=== PATIENT | female | born 2000 | race Caucasian/White ===

== ENCOUNTER 2025-04-29 08:05 | Emergency (ER) | payer BC, SELFPAY ==
--- OUTSIDE RECORDS SUMMARY | 2016-02-09 02:41 | XMS_ITS | Continuity of Care Document ---
Author Organization [facility] Address [address] [facility] [address] [place] [address] Phone Care Team Providers Care Direct Support Staff Name Role Phone Justino BARNES, Chantelle Unavailable Unavailable Allergies, Adverse Reactions, Alerts Substance Reaction Status Criticality No Known Allergies Active No Inform ation Medications Medication Instructions Dosage Effective Dates (start - stop) Status Comments No Drug Therapy Prescribed Advance Directives Directive Yes / No Effective Date File Name No Information Encounters Encounter Description Practice Location Reason(s) For Visit Diagnoses Date Provider Providers Copied on Encounter [facility], [address], [facility], tel:[phone] [facility] No Information 6 Justino Lockhart. [address] [facility] [address], [place], [id number] . tel: [phone] [facility], [address] [place] [address], [facility], tel:[phone] [facility] Patellofemoral disorder of left knee 6 Badillo Chantelle. [address] [facility] [address], [place], [id number] . tel: [phone] Family History Family Member Type Diagnosis Age At Onset No Information Payers Payer name Insurance type Covered libertarian ID Authoriza tion(s) No Information Social History Type Description Quantity Date Captured Comments Sex Female Smoking Status No Information Chief Complaint And Reason For Visit No Information Reason For Referral Reason For Referral No Information Plan Of Treatment Date Type Action Status Referral Ordered: MARIANNE PARKER COMPL 4/MORE VIEWS LT ordered History Of Present Illness Encounter Date Complaint History Of Prese nt Illness No Information Functional Status Date Functional Assessmen t No Information Medications Administered Medication Instructions Dosage Effective Dates (start - stop) Status Comments No Drug Therapy Prescribed Instructions Date Instruction Additional Infor mation No Information Assessments Type Assessment Date No Information Patient Care Teams Name Effective Dates (start - stop) Status Members No Information
--- OUTSIDE RECORDS SUMMARY | 2016-02-09 02:41 | XMS_ITS | Continuity of Care Document ---
Author Organization [facility] Address [address] [facility] [address] [place] [address] Phone Care Team Providers Care Gore Inserter Name Role Phone Justino BARNES, Chantelle Unavailable [...] Diagnoses Date Provider Providers Copied on Encounter [facility], [address], [facility], tel:[phone] [facility] No Information 6 Justino Lockhart. [address] [facility] [address], [place], [id number] . tel: [phone] [facility], [address] [place] [address], [facility], tel:[phone] [facility] Patellofemoral disorder of left knee 6 Badillo Chantelle. [address] [facility], [facility] [address], [place], [id number] . tel: [phone] Family History Family Member Type Diagnosis Age At Onset No Information Payers Payer name Insurance type Covered green party ID Authoriza tion(s) No Information Social History [...]
--- NOTE | ~2025-04-29 | XR_ITS ---
Abdominal radiograph(s) INDICATION: Left lateral pain, recent constipation COMPARISON: None TECHNIQUE: 2 views supine abdomen FINDINGS: Lung bases clear. Heart size upper limit of normal. Scattered colonic gas and stool. No increased stool burden. Small bowel loops not well seen. No evidence of organomegaly. Small calcification overlying upper pole right kidney. No acute bony abnormality. IMPRESSION: 1. No acute abnormality. 2. Tiny right renal stone not excluded. Reviewed, dictated and finalized at location R. LIATE MARKETING COORDINATOR
[2025-04-29 08:14] VITALS: BP 138/92; PULSE 116; RESP 18; TEMP 36.6; O2SAT 100
--- NOTE | 2025-04-29 08:26 | ED.ABDPAIN ---
HPI - Abdominal Pain General Chief Complaint: Abdominal Pain Stated Complaint: lower left abdo sharp pain Time Seen by Provider: 04/29/25 08:21 Source: patient and RN notes reviewed Mode of arrival: ambulatory Limitations: no limitations History of Present Illness HPI narrative: 25-year-old female patient presents today complaining of left lateral abdominal discomfort x5 days that is present only with movement and deep breath. Upon onset, patient had been constipated for a few days. Two days ago she had started taking some medication to help her past stool, which has been successful, but has not helped with her discomfort. She denies fever, urinary symptoms. History of appendectomy. Related Data Home Medications ?Medication ?Instructions ?Recorded ?Confirmed ?Last Taken ?Type drospirenone 3 mg-ethinyl tablet 04/29/25 Unknown History estradiol 0.02 mg tablet Allergies Allergy/AdvReac Type Severity Reaction Status Date / Time No Known Allergies Allergy Verified 04/29/25 08:23 [facility] Surgical History Surgical History (Updated 04/29/25 @ 08:32 by Joelle Miguel, BAG MACHINE TENDER, WEBSPHERE MESSAGE BROKER DEVELOPER) History of appendectomy Comments At time of signature, I have reviewed and agree with nursing past medical, surgical, social and family history unless otherwise noted. Please see nursing chart for further information. There is no relevant family history pertinent to the presenting complaint Exam Narrative: GENERAL: Well-appearing, well-nourished, and in no acute distress. HEAD: Normocephalic, atraumatic. EYES: EOMI. No redness or drainage. Conjunctivae normal. ENT: Mucous membranes pink and moist. NECK: Normal AROM. CHEST: No respiratory distress. Clear to auscultation. HEART: Regular rate and rhythm. No murmur appreciated. ABDOMEN: Soft, nondistended, normal active bowel sounds. Mild tenderness to the left lateral abdomen at the waistline. No rebound or guarding. EXTREMITIES: Normal range of motion. No edema. SKIN: Warm, dry, no rash. Capillary refill normal. Normal skin turgor. NEURO: No focal deficits. Alert and oriented x3. Gait steady. PSYCH: Normal affect. No signs of depression or anxiety. Course Course Level of Care: Express Care Visit Vital Signs Vital signs: Vital Signs Temperature 97.9 F 04/29/25 08:14 Pulse Rate 116 H 04/29/25 08:14 Respiratory Rate 18 04/29/25 08:14 Blood Pressure 138/92 H 04/29/25 08:14 Pulse Oximetry 100 04/29/25 08:14 Oxygen Delivery Room Air 04/29/25 08:14 Temperature 97.9 F 04/29/25 08:14 Pulse Rate 116 H 04/29/25 08:14 Respiratory Rate 18 04/29/25 08:14 Blood Pressure 138/92 H 04/29/25 08:14 Pulse Oximetry 100 04/29/25 08:14 Oxygen Delivery Room Air 04/29/25 08:14 Reviewed MDM - Abdominal Pain MDM Narrative Medical decision making narrative: 25-year-old female patient presents today complaining of left lateral abdominal discomfort x5 days that is present only with movement and deep breath. Upon onset, patient had been constipated for a few days. Two days ago she had started taking some medication to help her past stool, which has been successful, but has not helped with her discomfort. She denies fever, urinary symptoms. History of appendectomy. Upon exam, patient has some mild tenderness to the left lateral abdomen at the waistline without rebound or guarding. Urinalysis is negative. Urine negative. KUB is negative for acute findings. Discussed with patient that due to the location of the pain, that the pain is intermittent and present only with movement and deep breath, she could do some watchful waiting and follow up with her PCP or proceed to the ER for further evaluation this morning. Declines ER transfer at this time as she has a class, but will go if symptoms worsen. Differential Diagnosis Differential diagnosis: Likely abdominal pain, constipation, diverticulitis and other (muscle strain) Lab Data Attestation: I reviewed the patient's lab results. Labs: Lab Results 04/29/25 Range/Units 08:28 POC Urine Color Yellow POC Urine Clarity Cloudy POC Urine pH 7.0 POC Ur Specif [place] 1.020 POC Urine Protein Negative (Negative) POC Ur Glucose (UA) Negative (Negative) POC Urine Ketones Negative (Negative) POC Urine Blood Negative (Negative) POC Urine Nitrite Negative (Negative) POC Urine Bilirubin Negative (Negative) POC Urine Urobilinogen 0.2 POC U Leukocyte Esteras Negative (Negative) POC Urine HCG, Qual Negative (Negative) Imaging Data Radiologist's impression: ITS Impressions Abdomen X-Ray 04/29/25 09:12 IMPRESSION: 1. No acute abnormality. 2. Tiny right renal stone not excluded. Critical Care Time Critical Care Time Critical Care Time: No Discharge Plan Discharge Clinical Impression: Left lateral abdominal pain Patient Disposition: Home Condition: Stable Instructions: Abdominal Pain (ED) Additional Instructions: Your urinalysis is negative for infection today. Your urine test is negative. Your abdominal x-ray is negative. You have declined to go to the ER today. Please proceed to the ER at a later time if symptoms persist or worsen. Patient Language: Maltese Prescriptions: No Action drospirenone-ethinyl estradiol 3-0.02 mg tablet Follow-up/Referrals: PHYSICIAN NOT ON STAFF,NONSTAFF [Primary Care Provider] Time of Disposition: 09:28
[2025-04-29 08:38] LABS: BEDSIDEPREGUCG Negative (Negative); EDUAAPPEAR Cloudy; EDUABILI Negative (Negative); EDUABLOOD Negative (Negative); EDUACOLOR1 Yellow; EDUAGLUCOSE Negative (Negative); EDUAKETONE Negative (Negative); EDUALEUKO Negative (Negative); EDUANITRATE Negative (Negative); EDUAPH 7.0; EDUAPROTEIN Negative (Negative); EDUASPGRAVITY 1.020; EDUAUROBILI 0.2
--- OUTSIDE RECORDS SUMMARY | 2025-04-29 16:59 | XMS_ITS | Encounter Summary ---
Author Organization [facility] Address [address] [place] [address] Care Team Providers Care Change Management Name Role Phone Miki Ward MD Primary Care Provider [phone]- [phone] Encounter Details Date Type Department Care Team (Late st Contact Info) Description 05/11/2004 Outpatient Historical [facility] Pediatrics [place] 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 Gender Identity Not on file Sexual Orientation Not on file documented as of this encounter Plan of Treatment Not on file documented as of this encounter Visit Diagnoses Not on filedocumented in this encounter Additional Health Concerns Infection Onset Date Last Indicated Resolved Time R/O COVID-19 01/28/2020 01/28/2020 01/30/2020 5:00 AM CDT COVID-19 01/28/2020 01/28/2020 02/27/2020 1:16 AM CDT documented as of this encounter Care Teams Change Management Relationship Specialty Start Date End Date Miki Ward MD [address] [place] [address] PCP - General Pediatrics 01/15/22 07/04/22 documented as of this encounter
--- OUTSIDE RECORDS SUMMARY | 2025-04-29 16:59 | XMS_ITS | Clinical Summary ---
Author Organization [facility] [address] Address [address] [place] [address] Care Team Providers Care Performance Reporter Name Role Phone Unavailable Primary Care Provider Unavailabl e Allergies No known active allergies Medications multivitamin (DAILY-CURT) tablet Take 1 Tablet by mouth daily. Active albuterol sulfate 90 mcg/Actuation inhalerIndicati ons:Cough Take 2 Puffs by inhalation every 4 hours as needed for Shortness of Breath or Wheezing. 8.5 Gram 2 2 Active ondansetron (ZOFRAN ODT) 4 mg Tablet, Rapid Dissolve Place 1 Tablet (4 mg) under tongue every 6 hours as needed for Nausea/Emesis. Dissolve tablet on top of tongue, then swallow with saliva. 10 Tablet 3 Active Active Problems Problem Noted Date Diagnosed Date Irritable bowel syndrome wit h both constipation and diarrhea 01/15/2022 S/P appendectomy 01/15/2022 Exercise-induced asthma 01/19/2019 Resolved Problems Problem Noted Date Diagnosed Date Resolved Date Well child visit 05/31/2010 06/01/2010 Molluscum contagiosum 01/30/20102009 Cellulitis 01/16/2010 06/01/2010 Overview (01/18/2010): PO septra, topical mupirocin, Hibiclens baths. Sleep walking disorder 03/13/200906/01 Well child visit 03/11/2009 03/13/2009 Nonvenomous insect bite of leg with infection 12/03/1903/11/2009 Molluscum contagiosum 12/02/20082008 Immunizations Immunization Administration Dates Next Due (ADACEL/BOOSTRIX)(10 YR UP) TDAP VACCINE, 0.5ML, IM 01/14/2018,04/28/2012 (GARDASIL)(9-45 YRS) HUMAN PAPILLOMAVIRUS VACCINE, TYPES 6, 11, 16, 18, QUADRIVALENT (4VHPV), 3 DOSE, IM 01/28/2015,09/27/2014,07/28/2014 (HAVRIX/VAQTA)(12 MO-18 YRS) HEPATITIS A VACCINE 0.5 ML PED/ADOL 2 DOSE, IM 04/22/2008 (INFANRIX)(6 WKS-6 YRS) DIPT HERIA, TETANUS TOXOIDS, AND ACCELLULAR PERTUSSIS VACCINE (DTAP), 0.5 ML IM 03/11/2006,06/09/2002,2001,07/11,2001 (IPOL)(6 WKS AND UP) POLIOVI BELL VACCINE, INACTIVATED (IPV), 3 DOSE, SUBCUT OR IM 03/11/2006,2001,2001,05/12 (M-M-R II/PRIORIX)(12 MO UP) MEASLES, MUMPS AND RUBELLA VIRUS VACCINE, 0.5 ML IM/SUBCUT 03/11/2006,06/09/2002 (TRUMENBA)(10-25 YR) MENINGO COCCAL RECOMBIANT LIPOPROTEIN VACCINE, SEROGROUP B MENB-FHBP, 2-3 DOSE, IM 11/07/2020,12/30/2019 (VARIVAX)(12 MOS UP)VARICELL A VIRUS VACCINE (PF) 0.5 ML, SUB CUT 02/14/2007,03/13/2002 HIB, Unspecified Formulation 03/13/2002,07/11/19 02,2001 Hepatitis A Vaccine 02/14/2007 Hepatitis B Vaccine 03/13/2002,2001,2000 INFLUENZA VACCINE QUADRIVALE NT 3 YR UP PF IM 05/02/2015,05/04/2013 INFLUENZA VACCINE QUADRIVALE NT 6 MOS UP PF IM 03/18/2017 Influenza Seasonal Unspecifi ed Formulation IM 04/10/2005,04/10/2004,07/23/2002,06/09 Influenza Vaccine Split 3+ Yrs PF IM 10/2011,04/24/2011,05/31/2010,03/11,04/22/2008 Meningococcal A Conjugate Vaccine IM 03/18/2017, 04/28/2012 Pneumococcal conjugate, unsp ecified formulation 04/10/2005,2001,2001,05/12 Social History Tobacco Use Types Packs/Day Years Used Date Smoking Tobacco: Never Smokeless Tobacco: Never Tobacco Cessation:Counseling Given: Not Answered Alcohol Use Standard Drinks/Week Comments No 0 (1 standard drink = 0.6 oz pur e alcohol) Feeling Safe Answer Date Recorded Are you in a relationship wi th someone who hurts you emotionally and/or physically? No 06/08/2023 Comments No Sex and Gender Information Value Date Recorded Sex Assigned at Not on file Legal Sex Female 3:25 AM SATIN FINISHER Gender Identity Not on file Sexual Orientation Not on file Last Filed Vital Signs Vital Sign Reading Time Taken Comments Blood Pressure 117/69 06/08/2023 7:01 AM SATIN FINISHER Pulse 94 06/08/2023 7:01 AM SATIN FINISHER Temperature 36.4 C (97.6 F) 06/08/2023 2:11 AM SATIN FINISHER Respiratory Rate 14 06/08/2023 7:01 AM SATIN FINISHER Oxygen Saturation 100% 06/08/2023 7:01 AM SATIN FINISHER Inhaled Oxygen Concentration - - Weight 59 kg (130 lb) 06/08/2023 2:11 AM SATIN FINISHER Height 167.6 cm (5' 6) 06/08/2023 2:11 AM SATIN FINISHER Body Mass Index 20.98 06/08/2023 2:11 AM SATIN FINISHER Plan of Treatment Health Maintenance Due Date Last Done Comments HPV/Cotest (21-) 2022 INFLUENZA VACCINE (#1) 2025 7, 05/02/2015, 05/04/2013, Additional history exists CERVICAL CANCER SCREENING 05/15/2026 PAP SMEAR 05/15/2026 05/15/2023 DTAP/TDAP/TD VACCINES (8 - T d or Tdap) 01/15/2028 01/14/2018, 04/28/2012, 03/11/2006, Additional history exists HEPATITIS B VACCINES Completed 03/13/2002, 03/13/2002, 2001, Additional history exists HPV VACCINES Completed 01/28/2015, 11/2014, 07/28/2014 Insurance [facility] [employer]
--- OUTSIDE RECORDS SUMMARY | 2025-04-29 16:59 | XMS_ITS | Encounter Summary ---
Author Organization [facility] Address [address] [place] [address] Care Team Providers Care Flight Attendant Inflight Services Name Role Phone Miki Ward MD Primary Care Provider +1- [phone] Encounter Details Date Type Department Care Team (Late st Contact Info) Description 03/11/2006 Outpatient Historical [facility] Pediatrics [place] [address] [place] [address] Jeremias Martel MD NO ADDRESS ON FILE Social History Tobacco Use Types Packs/Day Years Used Date Smoking Tobacco: Never Assessed Comments Unknown Sex and Gender Information Value Date Recorded Sex Assigned at Not on file Legal Sex Female 3:25 AM NURSING ASSOC Gender Identity Not on file Sexual Orientation [...] documented as of this encounter Care Teams Flight Attendant Inflight Services Relationship Specialty Start Date End Date Miki Ward MD [address] [place], [place] [id number] PCP - General Pediatrics 01/15/22 07/04/22 documented as of this encounter
--- OUTSIDE RECORDS SUMMARY | 2025-04-29 16:59 | XMS_ITS | Encounter Summary ---
Author Organization [facility] Address [address] [place] [address] Care Team Providers Care Cardiac Cath Tech Name Role Phone Miki Ward MD Primary Care Provider +1- [phone] Encounter Details Date Type Department Care Team (Late st Contact Info) Description 04/10/2005 Outpatient Historical [facility] Pediatrics [place] 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
--- OUTSIDE RECORDS SUMMARY | 2025-04-29 16:59 | XMS_ITS | Encounter Summary ---
Author Organization [facility] Address [address] [place] [address] Care Team Providers Care Rn Child Name Role Phone Miki Ward MD Primary Care Provider +1- [phone] Encounter Details Date Type Department Care Team (Late st Contact Info) Description 09/17/2003 Outpatient Historical [facility] Pediatrics [address] [place] [address] Michelle Knox Social History Tobacco Use Types Packs/Day Years Used Date Smoking Tobacco: Never Assessed Comments Unknown Sex and Gender Information Value Date Recorded Sex Assigned at Not on file Legal Sex Female 3:25 AM WOOLEN TESTER Gender Identity Not on file Sexual Orientation [...] documented as of this encounter Care Teams Rn Child Relationship Specialty Start Date End Date Miki Ward MD [address] [place], [place] [id number] PCP - General Pediatrics 01/15/22 07/04/22 documented as of this encounter
--- OUTSIDE RECORDS SUMMARY | 2025-04-29 16:59 | XMS_ITS | Encounter Summary ---
Author Organization [facility] Address [address] [place] [address] Care Team Providers Care Bottom Polisher Name Role Phone Miki Ward MD Primary Care Provider +1- [phone] Encounter Details Date Type Department Care Team (Late st Contact Info) Description 04/10/[address] [facility] Pediatrics [address] [place] [address] Michelle Knox Social History Tobacco Use Types Packs/Day Years Used Date Smoking Tobacco: Never Assessed Comments Unknown Sex and Gender Information Value Date Recorded Sex Assigned at Not on file Legal Sex Female 3:25 AM TAG MAKER Gender Identity Not on file Sexual Orientation [...] documented as of this encounter Care Teams Bottom Polisher Relationship Specialty Start Date End Date Miki Ward MD [address] [place], [place] [id number] PCP - General Pediatrics 01/15/22 07/04/22 documented as of this encounter
--- OUTSIDE RECORDS SUMMARY | 2025-04-29 16:59 | XMS_ITS | Encounter Summary ---
Author Organization [facility] Address [address] [place] [address] Care Team Providers Care Tax Record Clerk Name Role Phone Miki Ward MD Primary Care Provider +1- [phone] Encounter Details Date Type Department Care Team (Late st Contact Info) Description 04/10/2004 Outpatient Historical [facility] Pediatrics 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
--- OUTSIDE RECORDS SUMMARY | 2025-04-29 16:59 | XMS_ITS | Encounter Summary ---
Author Organization [facility] Address [address] [place] [address] Care Team Providers Care Campus Coordinator Name Role Phone Miki Ward MD Primary Care Provider +1- [phone] Encounter Details Date Type Department Care Team (Late st Contact Info) Description 04/13/2005 Outpatient Historical [facility] Pediatrics [place] 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
--- OUTSIDE RECORDS SUMMARY | 2025-04-29 16:59 | XMS_ITS | Encounter Summary ---
Author Organization [facility] Address [address] [place] [address] Care Team Providers Care Salesperson Sheet Music Name Role Phone Miki Ward MD Primary Care Provider +1- [phone] Encounter Details Date Type Department Care Team (Late st Contact Info) Description 04/10/2004 Outpatient Historical [facility] Pediatrics 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
--- OUTSIDE RECORDS SUMMARY | 2025-04-29 16:59 | XMS_ITS | Encounter Summary ---
Author Organization [facility] Address [address] [place] [address] Care Team Providers Care Yard Spotter Name Role Phone Miki Ward MD Primary Care Provider +1- [phone] Encounter Details Date Type Department Care Team (Late st Contact Info) Description 06/29/2004 Outpatient Historical [facility] Pediatrics 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
--- OUTSIDE RECORDS SUMMARY | 2025-04-29 16:59 | XMS_ITS | Clinical Summary ---
Author Organization [facility] Address [address] [place]W Ronquillo [address] Care Team Providers Care Dedicated Truck Driver Name Role Phone Unavailable Primary Care Provider Unavailabl e Source Comments [facility],non-owned Affiliates and Associated Physician Practices is amultiple site organization consisting of ambulatory clinics and hospital sitesin [place], [place], [place] and [place]. This disclosure is being madepursuant to the Care Everywhere program and may not contain all information available regarding this patient. Last updated 18.[facility] [place] Allergies No known active allergies Medications * Be aware that medications may not be up to date on this document. Alwaysverify current medications with the patient. No known medications Active Problems Problem Noted Date Diagnosed Date Flu-like symptoms 07/25/2017 Throat soreness 07/25/2017 Social History Tobacco Use Types Packs/Day Years Used Date Smoking Tobacco: Never Smokeless Tobacco: Never Comments No Sex and Gender Information Value Date Recorded Sex Assigned at Not on file Legal Sex Female 9:10 AM PLANT TECH Gender Identity Not on file Sexual Orientation Not on file Last Filed Vital Signs Vital Sign Reading Time Taken Comments Blood Pressure 128/79 07/15/2019 8:41 AM PLANT TECH Pulse 100 07/15/2019 8:41 AM PLANT TECH Temperature 37.1 C (98.7 F) 07/15/2019 8:41 AM PLANT TECH Respiratory Rate 14 07/15/2019 8:41 AM PLANT TECH Oxygen Saturation 100% 07/15/2019 8:41 AM PLANT TECH Inhaled Oxygen Concentration - - Weight 59 kg (130 lb) 07/15/2019 8:41 AM PLANT TECH Height 167.6 cm (5' 6) 07/15/2019 8:41 AM PLANT TECH Body Mass Index 20.98 07/15/2019 8:41 AM PLANT TECH Plan of Treatment Health Maintenance Due Date Last Done Comments HIV SCREENING 2016 HPV VACCINE (1 - 3-dose series) 2016 CHLAMYDIA/GONORRHEA SCREENING 2017 HEPATITIS C SCREENING 03/06/2019 DTAP/TDAP/TD VACCINES (1 - Tdap) 2020 HEPATITIS B VACCINE (1 of 3 - 19+ 3-dose series) 2020 DEPRESSION SCREENING 06/24/2024 COVID-19 VACCINE (1 - season) 2025 INFLUENZA VACCINE (#1) 2025 7, 05/02/2015, 05/04/2013, Additional history exists ZOSTER VACCINE (1 of 2) 2051 HIB VACCINE Aged Out No longer eligi ble based on patient's age to complete this topic MENINGOCOCCAL (Group B) VACCINE SHARED DECISION-MAKING Aged Out No longer eligible based on patient's age to complete this topic MENINGOCOCCAL GROUPS A/C/Y/W VACCINE Aged Out No longer eligible based on patient's age to complete this topic PNEUMOCOCCAL VACCINE Aged Out No long er eligible based on patient's age to complete this topic Insurance NATALI [facility]
--- OUTSIDE RECORDS SUMMARY | 2025-04-29 16:59 | XMS_ITS | Encounter Summary ---
Author Organization [facility] Address [address] [place] [address] Care Team Providers Care Form Presser Name Role Phone Miki Ward MD Primary Care Provider +1- [phone] Encounter Details Date Type Department Care Team (Late st Contact Info) Description 01/02/2005 Outpatient Historical [facility] [place] [address] [place] [address] Jeremias Martel MD NO ADDRESS ON FILE Social History Tobacco Use Types Packs/Day Years Used Date Smoking Tobacco: Never Assessed Comments Unknown Sex and Gender Information Value Date Recorded Sex Assigned at Not on file Legal Sex Female 3:25 AM ORAL PATHOLOGIST Gender Identity Not on file Sexual Orientation [...] documented as of this encounter Care Teams Form Presser Relationship Specialty Start Date End Date Miki Ward MD [address] [place], [place] [id number] PCP - General Pediatrics 01/15/22 07/04/22 documented as of this encounter
--- OUTSIDE RECORDS SUMMARY | 2025-04-29 16:59 | XMS_ITS | Encounter Summary ---
Author Organization [facility] Address [address] [place] [address] Care Team Providers Care Trekking Guide Name Role Phone Miki Ward MD Primary Care Provider +1- [phone] Encounter Details Date Type Department Care Team (Late st Contact Info) Description 02/14/2007 Outpatient Historical [facility] [place] [address] [place] [address] Jeremias Martel MD NO ADDRESS ON FILE Social History Tobacco Use Types Packs/Day Years Used Date Smoking Tobacco: Never Assessed Comments Unknown Sex and Gender Information Value Date Recorded Sex Assigned at Not on file Legal Sex Female 3:25 AM FLOUR INSPECTOR Gender Identity Not on file Sexual Orientation [...] documented as of this encounter Care Teams Trekking Guide Relationship Specialty Start Date End Date Miki Ward MD [address] [place], [place] [id number] PCP - General Pediatrics 01/15/22 07/04/22 documented as of this encounter
--- OUTSIDE RECORDS SUMMARY | 2025-04-29 16:59 | XMS_ITS | Encounter Summary ---
Author Organization [facility] Address [address] [place] [address] Care Team Providers Care Construction Producer Name Role Phone Miki Ward MD Primary Care Provider +1- [phone] Encounter Details Date Type Department Care Team (Late st Contact Info) Description 04/10/2004 Outpatient Historical [facility] Pediatrics [address] [place] [address] Michelle Knox Social History Tobacco Use Types Packs/Day Years Used Date Smoking Tobacco: Never Assessed Comments Unknown Sex and Gender Information Value Date Recorded Sex Assigned at Not on file Legal Sex Female 3:25 AM IT SERVICE TECHNICIAN Gender Identity Not on file Sexual Orientation [...] documented as of this encounter Care Teams Construction Producer Relationship Specialty Start Date End Date Miki Ward MD [address] [place], [place] [id number] PCP - General Pediatrics 01/15/22 07/04/22 documented as of this encounter
--- OUTSIDE RECORDS SUMMARY | 2025-04-29 16:59 | XMS_ITS | Encounter Summary ---
Author Organization [facility] Address [address] [place] [address] Care Team Providers Care Cardiology Specialist Name Role Phone Miki Ward MD Primary Care Provider +1- [phone] Encounter Details Date Type Department Care Team (Late st Contact Info) Description 01/29/2005 Outpatient Historical [facility] Pediatric[facility] [place] [address] [place] [address] Jeremias Martel MD NO ADDRESS ON FILE Social History Tobacco Use Types Packs/Day Years Used Date Smoking Tobacco: Never Assessed Comments Unknown Sex and Gender Information Value Date Recorded Sex Assigned at Not on file Legal Sex Female 3:25 AM GUEST RELATIONS OFFICER Gender Identity Not on file Sexual Orientation [...] documented as of this encounter Care Teams Cardiology Specialist Relationship Specialty Start Date End Date Miki Ward MD [address] [place], [place] [id number] PCP - General Pediatrics 01/15/22 07/04/22 documented as of this encounter
--- OUTSIDE RECORDS SUMMARY | 2025-04-29 16:59 | XMS_ITS | Encounter Summary ---
Author Organization [facility] Address [address] [place] [address] Care Team Providers Care Superintendent Refuse Disposal Name Role Phone Miki Ward MD Primary Care Provider +1- [phone] Encounter Details Date Type Department Care Team (Late st Contact Info) Description 01/24/2005 Outpatient Historical [facility] Pediatrics [address] [place] [address] Miki Ward MD [address] [place] [address] Social History Tobacco Use Types Packs/Day Years Used Date Smoking Tobacco: Never Assessed Comments Unknown Sex and Gender Information Value Date Recorded Sex Assigned at Not on file Legal Sex Female 3:25 AM SMART ENERGY SPECIALIST Gender Identity Not on file Sexual Orientation [...] documented as of this encounter Care Teams Superintendent Refuse Disposal Relationship Specialty Start Date End Date Miki Ward MD [address] [place] [address] PCP - General Pediatrics 01/15/22 07/04/22 documented as of this encounter
--- OUTSIDE RECORDS SUMMARY | 2025-04-29 16:59 | XMS_ITS | Encounter Summary ---
Author Organization [facility] Address [address] [place] [address] Care Team Providers Care Revenue Coordinator Name Role Phone Miki Ward MD Primary Care Provider +1- [phone] Encounter Details Date Type Department Care Team (Late st Contact Info) Description 07/24/2004 Outpatient Historical [facility] Pediatrics [address] [place] [address] Miki Ward MD [address] [place] [address] Social History Tobacco Use Types Packs/Day Years Used Date Smoking Tobacco: Never Assessed Comments Unknown Sex and Gender Information Value Date Recorded Sex Assigned at Not on file Legal Sex Female 3:25 AM SALES TRAINING COORDINATOR Gender Identity Not on file Sexual Orientation [...] documented as of this encounter Care Teams Revenue Coordinator Relationship Specialty Start Date End Date Miki Ward MD [address] [place] [address] PCP - General Pediatrics 01/15/22 07/04/22 documented as of this encounter
--- OUTSIDE RECORDS SUMMARY | 2025-04-29 16:59 | XMS_ITS | Encounter Summary ---
Author Organization [facility] Address [address] [place] [address] Care Team Providers Care Cardiovascular Technician Name Role Phone Miki Ward MD Primary Care Provider +1- [phone] Encounter Details Date Type Department Care Team (Late st Contact Info) Description 06/02/2007 Outpatient Historical [facility] Pediatrics [place] [address] [place] [address] Jeremias Martel MD NO ADDRESS ON FILE Social History Tobacco Use Types Packs/Day Years Used Date Smoking Tobacco: Never Assessed Comments Unknown Sex and Gender Information Value Date Recorded Sex Assigned at Not on file Legal Sex Female 3:25 AM TRIMMING OPERATOR Gender Identity Not on file Sexual [...] documented as of this encounter Care Teams Cardiovascular Technician Relationship Specialty Start Date End Date Miki Ward MD [address] [place], [place] [id number] PCP - General Pediatrics 01/15/22 07/04/22 documented as of this encounter
--- OUTSIDE RECORDS SUMMARY | 2025-04-29 16:59 | XMS_ITS | Encounter Summary ---
Author Organization [facility] Address [address] [place] [address] Care Team Providers Care Water Server Name Role Phone Miki Ward MD Primary Care Provider +1- [phone] Encounter Details Date Type Department Care Team (Late st Contact Info) Description 03/11/2006 Outpatient Historical [facility] Pediatrics [place] [address] [place] [address] Jeremias Martel MD NO ADDRESS ON FILE Social History Tobacco Use Types Packs/Day Years Used Date Smoking Tobacco: Never Assessed Comments Unknown Sex and Gender Information Value Date Recorded Sex Assigned at Not on file Legal Sex Female 3:25 AM FLUME WORKER Gender Identity Not on file Sexual [...] documented as of this encounter Care Teams Water Server Relationship Specialty Start Date End Date Miki Ward MD [address] [place], [place] [id number] PCP - General Pediatrics 01/15/22 07/04/22 documented as of this encounter
--- OUTSIDE RECORDS SUMMARY | 2025-04-29 17:00 | XMS_ITS | Encounter Summary ---
Author Organization [facility] Address [address] [place] [address] Care Team Providers Care Bar Examiner Name Role Phone Miki Ward MD Primary Care Provider +1- [phone] Encounter Details Date Type Department Care Team (Late st Contact Info) Description 03/23/2002 Outpatient Historical [facility] [address] [address] Singh Angel MD NO ADDRESS ON FILE Social History Tobacco Use Types Packs/Day Years Used Date Smoking Tobacco: Never Assessed Comments Unknown Sex and Gender Information Value Date Recorded Sex Assigned at Not on file Legal Sex Female 3:25 AM NETWORK MGR Gender Identity Not on file Sexual Orientation [...] documented as of this encounter Care Teams Bar Examiner Relationship Specialty Start Date End Date Miki Ward MD [address] [place] [address] PCP - General Pediatrics 01/15/22 07/04/22 documented as of this encounter
--- OUTSIDE RECORDS SUMMARY | 2025-04-29 17:00 | XMS_ITS | Encounter Summary ---
Author Organization [facility] Address [address] [place] [address] Care Team Providers Care Tractor Operator Laser Leveling Name Role Phone Miki Ward MD Primary Care Provider +1- [phone] Encounter Details Date Type Department Care Team (Late st Contact Info) Description 09/16/[address] [facility] Pediatrics [address] [place] [address] Michelle Knox Social History Tobacco Use Types Packs/Day Years Used Date Smoking Tobacco: Never Assessed Comments Unknown Sex and Gender Information Value Date Recorded Sex Assigned at Not on file Legal Sex Female 3:25 AM ONLINE MARKETING ANALYST Gender Identity Not on file Sexual Orientation [...] documented as of this encounter Care Teams Tractor Operator Laser Leveling Relationship Specialty Start Date End Date Miki Ward MD [address] [place], [place] [id number] PCP - General Pediatrics 01/15/22 07/04/22 documented as of this encounter
--- OUTSIDE RECORDS SUMMARY | 2025-04-29 17:00 | XMS_ITS | Encounter Summary ---
Author Organization [facility] Address [address] [place] [address] Care Team Providers Care Network Operations Lead Name Role Phone Miki Ward MD Primary Care Provider +1- [phone] Encounter Details Date Type Department Care Team (Late st Contact Info) Description 2001 Outpatient Historical [facility] Pediatrics [address] [place] [address] Miki Ward MD [address] [place] [address] Social History Tobacco Use Types Packs/Day Years Used Date Smoking Tobacco: Never Assessed Comments Unknown Sex and Gender Information Value Date Recorded Sex Assigned at Not on file Legal Sex Female 3:25 AM VALIDATION SOFTWARE FACILITATOR Gender Identity Not on file Sexual Orientation [...] documented as of this encounter Care Teams Network Operations Lead Relationship Specialty Start Date End Date Miki Ward MD [address] [place] [address] PCP - General Pediatrics 01/15/22 07/04/22 documented as of this encounter
--- OUTSIDE RECORDS SUMMARY | 2025-04-29 17:00 | XMS_ITS | Encounter Summary ---
Author Organization [facility] Address [address] [place] [address] Care Team Providers Care Bench Lay Out Technician Name Role Phone Miki Ward MD Primary Care Provider +1- [phone] Encounter Details Date Type Department Care Team (Late st Contact Info) Description 2001 Outpatient Historical [facility] Pediatrics [address] [place] [address] Michelle Knox Social History Tobacco Use Types Packs/Day Years Used Date Smoking Tobacco: Never Assessed Comments Unknown Sex and Gender Information Value Date Recorded Sex Assigned at Not on file Legal Sex Female 3:25 AM HEALTH PROFESSOR Gender Identity Not on file Sexual Orientation [...] documented as of this encounter Care Teams Bench Lay Out Technician Relationship Specialty Start Date End Date Miki Ward MD [address] [place], [place] [id number] PCP - General Pediatrics 01/15/22 07/04/22 documented as of this encounter
--- OUTSIDE RECORDS SUMMARY | 2025-04-29 17:00 | XMS_ITS | Encounter Summary ---
Author Organization [facility] Address [address] [place] [address] Care Team Providers Care Transportation Maintenance Supervisor Name Role Phone Miki Ward MD Primary Care Provider +1- [phone] Encounter Details Date Type Department Care Team (Late st Contact Info) Description 2001 Outpatient Historical [facility] Pediatrics 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
--- OUTSIDE RECORDS SUMMARY | 2025-04-29 17:00 | XMS_ITS | Encounter Summary ---
Author Organization [facility] Address [address] [place] [address] Care Team Providers Care Static Balancer Name Role Phone Miki Ward MD Primary Care Provider +1- [phone] Encounter Details Date Type Department Care Team (Late st Contact Info) Description 03/13/2002 Outpatient Historical [facility] Pediatrics [address] [place] [address] Michelle Knox Social History Tobacco Use Types Packs/Day Years Used Date Smoking Tobacco: Never Assessed Comments Unknown Sex and Gender Information Value Date Recorded Sex Assigned at Not on file Legal Sex Female 3:25 AM PUNCHER AND FASTENER Gender Identity Not on file Sexual Orientation [...] documented as of this encounter Care Teams Static Balancer Relationship Specialty Start Date End Date Miki Ward MD [address] [place], [place] [id number] PCP - General Pediatrics 01/15/22 07/04/22 documented as of this encounter
--- OUTSIDE RECORDS SUMMARY | 2025-04-29 17:00 | XMS_ITS | Encounter Summary ---
Author Organization [facility] Address [address] [place] [address] Care Team Providers Care Ip Counsel Name Role Phone Miki Ward MD Primary Care Provider +1- [phone] Encounter Details Date Type Department Care Team (Late st Contact Info) Description 06/05/2003 Outpatient Historical [facility] Pediatrics [place] [address] [place] [address] Miki Ward MD [address] [place] [address] Social History Tobacco Use Types Packs/Day Years Used Date Smoking Tobacco: Never Assessed Comments Unknown Sex and Gender Information Value Date Recorded Sex Assigned at Not on file Legal Sex Female 3:25 AM SUPERVISOR GAME FARM Gender Identity Not on file Sexual Orientation [...] documented as of this encounter Care Teams Ip Counsel Relationship Specialty Start Date End Date Miki Ward MD [address] [place] [address] PCP - General Pediatrics 01/15/22 07/04/22 documented as of this encounter
--- OUTSIDE RECORDS SUMMARY | 2025-04-29 17:00 | XMS_ITS | Encounter Summary ---
Author Organization [facility] Address [address] [place] [address] Care Team Providers Care Tire Cord Weaver Name Role Phone Miki Ward MD Primary Care Provider +1- [phone] Encounter Details Date Type Department Care Team (Late st Contact Info) Description 07/14/2002 Outpatient Historical [facility] Pediatrics [address] [place] [address] Michelle Knox Social History Tobacco Use Types Packs/Day Years Used Date Smoking Tobacco: Never Assessed Comments Unknown Sex and Gender Information Value Date Recorded Sex Assigned at Not on file Legal Sex Female 3:25 AM AIRCRAFT SYSTEMS REPAIRER Gender Identity Not on file Sexual Orientation [...] documented as of this encounter Care Teams Tire Cord Weaver Relationship Specialty Start Date End Date Miki Ward MD [address] [place], [place] [id number] PCP - General Pediatrics 01/15/22 07/04/22 documented as of this encounter
--- OUTSIDE RECORDS SUMMARY | 2025-04-29 17:00 | XMS_ITS | Encounter Summary ---
Author Organization [facility] Address [address] [place] [address] Care Team Providers Care Clinical Systems Analyst Name Role Phone Miki Ward MD Primary Care Provider +1- [phone] Encounter Details Date Type Department Care Team (Late st Contact Info) Description 03/19/2003 Outpatient Historical [facility] Pediatrics [address] [place] [address] Michelle Knox Social History Tobacco Use Types Packs/Day Years Used Date Smoking Tobacco: Never Assessed Comments Unknown Sex and Gender Information Value Date Recorded Sex Assigned at Not on file Legal Sex Female 3:25 AM TECHNOLOGY PROFESSIONAL Gender Identity Not on file Sexual Orientation [...] documented as of this encounter Care Teams Clinical Systems Analyst Relationship Specialty Start Date End Date Miki Ward MD [address] [place], [place] [id number] PCP - General Pediatrics 01/15/22 07/04/22 documented as of this encounter
--- OUTSIDE RECORDS SUMMARY | 2025-04-29 17:00 | XMS_ITS | Encounter Summary ---
Author Organization [facility] Address [address] [place] [address] Care Team Providers Care Multimedia Developer Name Role Phone Miki Ward MD Primary Care Provider +1- [phone] Encounter Details Date Type Department Care Team (Late st Contact Info) Description 2001 Outpatient Historical [facility] Pediatrics [address] [place] [address] Michelle Knox Social History Tobacco Use Types Packs/Day Years Used Date Smoking Tobacco: Never Assessed Comments Unknown Sex and Gender Information Value Date Recorded Sex Assigned at Not on file Legal Sex Female 3:25 AM FIBERGLASS BOAT ASSEMBLY SUPERVISOR Gender Identity Not on file Sexual Orientation [...] documented as of this encounter Care Teams Multimedia Developer Relationship Specialty Start Date End Date Miki Ward MD [address] [place], [place] [id number] PCP - General Pediatrics 01/15/22 07/04/22 documented as of this encounter
--- OUTSIDE RECORDS SUMMARY | 2025-04-29 17:00 | XMS_ITS | Encounter Summary ---
Author Organization [facility] Address [address] [place] [address] Care Team Providers Care Power Generation Equipment Repairer Name Role Phone Miik Ward MD Primary Care Provider +1- [phone] Encounter Details Date Type Department Care Team (Late st Contact Info) Description 03/22/2003 Outpatient Historical [facility] Pediatrics [address] [place] [address] Miki Ward MD [address] [place] [address] Social History Tobacco Use Types Packs/Day Years Used Date Smoking Tobacco: Never Assessed Comments Unknown Sex and Gender Information Value Date Recorded Sex Assigned at Not on file Legal Sex Female 3:25 AM ORTHOPAEDIC SURGEON Gender Identity Not on file Sexual Orientation [...] documented as of this encounter Care Teams Power Generation Equipment Repairer Relationship Specialty Start Date End Date Miki Ward MD [address] [place] [address] PCP - General Pediatrics 01/15/22 07/04/22 documented as of this encounter
--- OUTSIDE RECORDS SUMMARY | 2025-04-29 17:00 | XMS_ITS | Encounter Summary ---
Author Organization [facility] Address [address] [place] [address] Care Team Providers Care Fitness Management Director Name Role Phone Miki Ward MD Primary Care Provider +1- [phone] Encounter Details Date Type Department Care Team (Late st Contact Info) Description 2001 Outpatient Historical [facility] Pediatrics [address] [place] [id number] Michelle Knox Social History Tobacco Use Types Packs/Day Years Used Date Smoking Tobacco: Never Assessed Comments Unknown Sex and Gender Information Value Date Recorded Sex Assigned at Not on file Legal Sex Female 3:25 AM CERTIFIED NURSES' AIDE Gender Identity Not on file Sexual Orientation [...] documented as of this encounter Care Teams Fitness Management Director Relationship Specialty Start Date End Date Miki Ward MD [address] [place], [place] [id number] PCP - General Pediatrics 01/15/22 07/04/22 documented as of this encounter
--- OUTSIDE RECORDS SUMMARY | 2025-04-29 17:00 | XMS_ITS | Encounter Summary ---
Author Organization [facility] Address [address] [place] [address] Care Team Providers Care Incoming Inspector Name Role Phone Miki Ward MD Primary Care Provider +1- [phone] Encounter Details Date Type Department Care Team (Late st Contact Info) Description 2001 Outpatient Historical [facility] Pediatrics [address] [place] [address] Michelle Knox Social History Tobacco Use Types Packs/Day Years Used Date Smoking Tobacco: Never Assessed Comments Unknown Sex and Gender Information Value Date Recorded Sex Assigned at Not on file Legal Sex Female 3:25 AM GARMENT INSPECTOR Gender Identity Not on file Sexual [...] documented as of this encounter Care Teams Incoming Inspector Relationship Specialty Start Date End Date Miki Ward MD [address] [place], [place] [id number] PCP - General Pediatrics 01/15/22 07/04/22 documented as of this encounter
--- OUTSIDE RECORDS SUMMARY | 2025-04-29 17:00 | XMS_ITS | Encounter Summary ---
Author Organization [facility] Address [address] [place] [address] Care Team Providers Care Item Processing Clerk Name Role Phone Miki Ward MD Primary Care Provider +1- [phone] Encounter Details Date Type Department Care Team (Late st Contact Info) Description 2001 Outpatient Historical [facility] Pediatrics [address] [place] [address] Michelle Knox Social History Tobacco Use Types Packs/Day Years Used Date Smoking Tobacco: Never Assessed Comments Unknown Sex and Gender Information Value Date Recorded Sex Assigned at Not on file Legal Sex Female 3:25 AM SENIOR SOFTWARE QA ANALYST Gender Identity Not on file Sexual [...] documented as of this encounter Care Teams Item Processing Clerk Relationship Specialty Start Date End Date Miki Ward MD [address] [place], [place] [id number] PCP - General Pediatrics 01/15/22 07/04/22 documented as of this encounter
--- OUTSIDE RECORDS SUMMARY | 2025-04-29 17:00 | XMS_ITS | Encounter Summary ---
Author Organization [facility] Address [address] [place] [address] Care Team Providers Care Motor Man Name Role Phone Miki Ward MD Primary Care Provider +1- [phone] Encounter Details Date Type Department Care Team (Late st Contact Info) Description 06/09/2002 Outpatient Historical [facility] Pediatrics [address] [place] [address] Michelle Knox Social History Tobacco Use Types Packs/Day Years Used Date Smoking Tobacco: Never Assessed Comments Unknown Sex and Gender Information Value Date Recorded Sex Assigned at Not on file Legal Sex Female 3:25 AM AUTOMOBILE SERVICE WRITER Gender Identity Not on file Sexual Orientation [...] documented as of this encounter Care Teams Motor Man Relationship Specialty Start Date End Date Miki Ward MD [address] [place], [place] [id number] PCP - General Pediatrics 01/15/22 07/04/22 documented as of this encounter
--- OUTSIDE RECORDS SUMMARY | 2025-04-29 17:00 | XMS_ITS | Encounter Summary ---
Author Organization [facility] Address [address] [place] [address] Care Team Providers Care Electric Shipyard Operator Name Role Phone Miki Ward MD Primary Care Provider +1- [phone] Encounter Details Date Type Department Care Team (Late st Contact Info) Description 07/23/2002 Outpatient Historical [facility] Pediatrics [address] [place] [phone] Michelle Knox Social History Tobacco Use Types Packs/Day Years Used Date Smoking Tobacco: Never Assessed Comments Unknown Sex and Gender Information Value Date Recorded Sex Assigned at Not on file Legal Sex Female 3:25 AM WAITRESS Gender Identity Not on file Sexual Orientation [...] documented as of this encounter Care Teams Electric Shipyard Operator Relationship Specialty Start Date End Date Miki Ward MD [address] [place], [place] [id number] PCP - General Pediatrics 01/15/22 07/04/22 documented as of this encounter
--- OUTSIDE RECORDS SUMMARY | 2025-04-29 17:00 | XMS_ITS | Encounter Summary ---
Author Organization [facility] Address [address] [place] [address] Care Team Providers Care Anthropologist Physical Name Role Phone Miki Ward MD Primary Care Provider +1- [phone] Encounter Details Date Type Department Care Team (Late st Contact Info) Description 2001 Outpatient Historical [facility] Pediatrics [address] [place] [address] Michelle Knox Social History Tobacco Use Types Packs/Day Years Used Date Smoking Tobacco: Never Assessed Comments Unknown Sex and Gender Information Value Date Recorded Sex Assigned at Not on file Legal Sex Female 3:25 AM SENIOR LABEL SPECIALIST Gender Identity Not on file Sexual [...] documented as of this encounter Care Teams Anthropologist Physical Relationship Specialty Start Date End Date Miki Ward MD [address] [place], [place] [id number] PCP - General Pediatrics 01/15/22 07/04/22 documented as of this encounter
--- OUTSIDE RECORDS SUMMARY | 2025-04-29 17:00 | XMS_ITS | Encounter Summary ---
Author Organization [facility] Address [address] [place] [address] Care Team Providers Care Supervisor Food Checkers And Cashiers Name Role Phone Miki Ward MD Primary Care Provider +1- [phone] Encounter Details Date Type Department Care Team (Late st Contact Info) Description 08/13/2003 Outpatient Historical [facility] Pediatrics [place] [address] [place] [address] Miki Ward MD [address] [place] [address] Social History Tobacco Use Types Packs/Day Years Used Date Smoking Tobacco: Never Assessed Comments Unknown Sex and Gender Information Value Date Recorded Sex Assigned at Not on file Legal Sex Female 3:25 AM FIELD CANE SCALER Gender Identity Not on file Sexual Orientation [...] documented as of this encounter Care Teams Supervisor Food Checkers And Cashiers Relationship Specialty Start Date End Date Miki Ward MD [address] [place] [address] PCP - General Pediatrics 01/15/22 07/04/22 documented as of this encounter
--- OUTSIDE RECORDS SUMMARY | 2025-04-29 17:00 | XMS_ITS | Clinical Summary ---
Author Organization [facility] Address [address] [place] [address] Care Team Providers Care Marine Equipment Sales Engineer Name Role Phone Vianey Robertson MD Primary Care Provide r Allergies No known active allergies Medications albuterol HFA (PROVENTIL HFA,VENTOLIN HFA,PROAIR HFA) 90 mcg/actuation inhaler Inhale 2 puffs every 4 (four) hours as needed 9 Active inhalational spacing device spacer To be used with the albuterol inhaler.. 9 Active drospirenone-et hinyl estradioL (HARVEY,GIANVI) 3-0.02 mg per tablet Take 1 tablet by mouth daily 84 tablet 3 5 09/02/19 26 Active ondansetron (ZOFRAN) 4 mg tablet Take 1 tablet (4 mg total) by mouth every 6 (six) hours as needed for nausea 30 tablet 1 5 Active Active Problems Problem Noted Date Diagnosed Date Acid reflux 05/15/2023 S/P appendectomy 01/15/2022 Irritable bowel syndrome wit h both constipation and diarrhea 12/28/2021 Abnormal celiac antibody panel 12/02/2020 Bloating 11/11/2020 Exercise-induced asthma 01/19/2019 Flu-like symptoms 07/25/2017 Throat soreness 07/25/2017 Resolved Problems Problem Noted Date Diagnosed Date Resolved Date RUQ abdominal pain 08/03/2020 5 Immunizations Immunization Administration Dates Next Due DTaP 03/11/2006, 2,2001,07/11,2001 HPV, Quadrivalent 01/28/2015,09/27/2014,07/28/19 15 Hep A, Adult 02/14/2007 Hep A, Pediatric 04/22/2008 Hep B / HiB 03/13/2002,2001,2001 Hep B Vaccine 03/13/2002,2001,2001 HiB 03/13/2002,2001,2001 IPV 03/11/2006, 2,2001,05/12 Influenza, Quadrivalent, Spl it, Preservative Free, Intramuscular 03/18/2017,05/02/2015,05/04/2013 Influenza, Split 07/23/2002,06/09/2002 Influenza, Trivalent, IM (MDV) 5,04/10/2004,07/23/2002,06/09 Influenza, Trivalent, Preser vative Free, Intramuscular 04/28/2012,04/24/2011,05/31/2010,03/11,04/22/2008 MMR 03/11/2006,06/09/2002 Meningococcal B, Recombinant (Trumenba) 11/07/2020,12/30/2019 Meningococcal Conjugate (Menveo) 03/18/2017,1110/2011 Pneumococcal Conjugate 7-Valent 2001,07/11,2001 Pneumococcal Conjugate, Unspecified 03/24,2001,2001,05/12 Tdap 01/14/2018,04/28/2012 Varicella 02/14/2007,03/13/2002 Surgical History Surgery Date Site/Laterality Comments APPENDECTOMY Medical History Medical History Date Comments Migraine Generalized headaches Asthma Family History Medical History Relation Name Comments Graves' disease Mother's Sister Relation Name Status Comments Mother's Sister Social History Tobacco Use Types Packs/Day Years Used Date Smoking Tobacco: Never Smokeless Tobacco: Never Tobacco Cessation:Counseling Given: Not Answered Alcohol Use Standard Drinks/Week Comments No 0 (1 standard drink = 0.6 oz pur e alcohol) Humiliation, Afraid, Rape, and Kick questionnair e Answer Date Recorded Within the last year, have y ou been afraid of your partner or ex-partner? No 11/30/2019 Within the last year, have y ou been humiliated or emotionally abused in other ways by your partner or ex-partner? No Within the last year, have y ou been kicked, hit, slapped, or otherwise physically hurt by your partner or ex-partner? No 11/30/2019 Within the last year, have y ou been raped or forced to have any kind of sexual activity by your partner or ex-partner? No 11/30/2019 Social Connection and Isolation Panel Answer Date Recorded Frequency of Communication with Friends and Fami ly Not on file 11/30/2019 Frequency of Social Gatherings with Friends and Family Not on file 11/30/2019 Attends Taoism Services Not on file 11/29 Active Member of Clubs or Organizations Not on f ile 11/30/2019 Attends Club or Organization Meetings Not on rafaela e 11/30/2019 Are you , , di vorced, , never , or living with a partner? Never 11/30/2019 AUDIT-C Answer Date Recorded Q1: How often do you have a drink containing alc ohol? 2-4 times a month 12/02/2020 Average Number of Drinks Not on file 021 Frequency of Binge Drinking Not on file 11/22 Exercise Vital Sign Answer Date Recorde d On average, how many days pe r week do you engage in moderate to strenuous exercise (like a brisk walk)? 6 days 11/30/2019 On average, how many minutes do you engage in exercise at this level? 50 min 11/30/2019 Comments No Sex and Gender Information Value Date Recorded Sex Assigned at Not on file Legal Sex Female 5:07 AM WRIST LINER Gender Identity Not on file Sexual Orientation Not on file Obstetrics History Para Term AB IAB SAB Ectopic Multiple Livin g Live Births 0 0 0 0 0 0 0 0 0 0 0 Last Filed Vital Signs Vital Sign Reading Time Taken Comments Blood Pressure 110/70 09/01/2024 9:15 AM CDT Pulse 89 12/02/2020 3:29 PM CDT Temperature 36.7 C (98.1 F) 12/02/2020 3:29 PM CDT Respiratory Rate - - Oxygen Saturation - - Inhaled Oxygen Concentration - - Weight 68.5 kg (151 lb) 09/01/2024 9:15 AM CDT Height 167.6 cm (5' 6) 09/01/2024 9:15 AM CDT Body Mass Index 24.37 09/01/2024 9:15 AM CDT Plan of Treatment Health Maintenance Due Date Last Done Comments Chlamydia and Gonorrhea (GC/ CT) Screening 2001 Depression Screening 2001 Hepatitis C Screening 2001 Pneumococcal vaccine <65 (1 of 1 - PPSV23, PCV20, or PCV21) 2007 04/10/2005, 2001, 2001, Additional history exists Cervical Cancer Screening 05/15/2024 05/15/2023 Influenza Vaccine (#1) 2025 7, 05/02/2015, 05/04/2013, Additional history exists Regular Well Visit/Exam 18-64 09/01/2025, 05/15/2023, 12/27/2021, Additional history exists DTaP/Tdap/Td Vaccine (8 - Td or Tdap) 01/15/2028 01/14/2018, 04/28/2012, 03/11/2006, Additional history exists Hepatitis B Screening Completed 03/13/2002 , 03/13/2002, 2001, Additional history exists Varicella Vaccines Completed 02/14/2007, 03/13/2002 HPV Vaccines Completed 01/28/2015, 040 11/2014, 07/28/2014 Procedures Procedure Name Priority Date/Time Associated Diagnosis Comments PAP WITH REFLEX TO HIGH RISK HPV Routine 05/15/2023 3:20 PM WRIST LINER Well woman exam with routine gynecological exam from Last 3 Months or Most Recently Relevant to Health Maintenance Results * Pap with reflex to High Risk HPV and Genotyping (Cytology Component) (05/15/2023 3:20 PM WRIST LINER) Thin prep (Pap test) 05/15/2023 3:20 PM WRIST LINER 05/21/2023 3:03 PM WRIST LINER Narrative PATHOLOGY [facility] - 05/26/2023 4:53 PM WRIST LINER EPIC results best viewed via link to PDF [address] [address] Tele: Ami Tripathi MD - Supervisor Microfilm Duplicating Unit CYTOLOGY REPORT Note to Patients: This report may contain a detailed description of human tissue sent by a health care provider to the laboratory for pathologic evaluation. The content of this report is essential for diagnosis and may provide important critical findings. This information may be unfamiliar to patients to review without a medical professional present. It is advised that the patient review this report in the presence of a health care provider who can answer questions and explain the details. Patient Name: NAVJOT RONDON Address: [address] [place] [address] Gender: F : 2000 (Age: 23) Service: Location: N : [id number] Hospital #: [id number] Patient Type: [facility] SPECIMEN Taken: 05/15/2023 Reported: 05/26/2023 Physician(s): KULWANT Moreno FINAL DIAGNOSIS: SOURCE OF SPECIMEN - ThinPrep Pap w/ reflex HPV: STATEMENT OF ADEQUACY Source: Cervical/Endocervical - Satisfactory for interpretation - Endocervical/Transformation zone component absent or insufficient - Case screened using computer assisted imaging technology and manually re- screened by a sleep technician. GENERAL CATEGORIZATION: - Negative for intraepithelial lesion or malignancy [facility]/05/26/2023 16:53LEIDY Campuzano(ASCP), CMIAC Report Reviewed and Electronically Signed By LEIDY Campuzano(ASCP), JULISAlerical Data Follow A; [id number] CLINICAL DIAGNOSIS AND HISTORY Last Menstrual Period: 04/30/2023 REPORT IMAGES AND/OR SCANNED DOCUMENTS ONLY VIEWABLE IN PDF FORMAT The Pap test is a screening test used to aid in the detection of cervical cancer and its precursors. It should not be the sole means by which malignant and premalignant lesions are diagnosed. Both false negative and false positive results may occur. It also has poor sensitivity for the detection of endometrial lesions and should not be used to evaluate suspected endometrial abnormalities. For these reasons it is most important to obtain Pap tests at regular intervals, as recommended by your physician or nurse practitioner. us Francine Sutherland NP LAB CYTOLOGY ORDERABLES Fin al Result PATHOLOGY [facility] Laboratory Receiving [address] [place], [place] [id number] from Last 3 Months or Most Recently Relevant to Health Maintenance Insurance [address] [id number] [facility] [place] [address] [place] [id number] [facility] [employer] PL[employer] ANTHEM PREFERRED ANTHEM PREFERRED Member Subscriber Plan / Payer (Ef fective 2022-) Name:Navjot Rondon Relation to Subscriber:Child Name:ELVA RONDON Date of :1968 (Home) Address: [facility] [place] [address] Payer ID:[id number] (NAIC) Type:[employer] Address: [address] CHOICE PLUS Care Teams Marine Equipment Sales Engineer Relationship Specialty Start Date End Date Vianey Robertson MD [address] [place] [address] PCP - General 12/02/20
--- OUTSIDE RECORDS SUMMARY | 2025-04-29 17:00 | XMS_ITS | Encounter Summary ---
Author Organization [facility] Address [address] [place] [address] Care Team Providers Care Mainframe Systems Engineer Name Role Phone Miki Ward MD Primary Care Provider +1- [phone] Encounter Details Date Type Department Care Team (Late st Contact Info) Description [address] [facility] Pediatrics [address] [place] [address] Michelle Knox Social History Tobacco Use Types Packs/Day Years Used Date Smoking Tobacco: Never Assessed Comments Unknown Sex and Gender Information Value Date Recorded Sex Assigned at Not on file Legal Sex Female 3:25 AM SERVICE LINE BUS CLEANER Gender Identity Not on file Sexual Orientation [...] documented as of this encounter Care Teams Mainframe Systems Engineer Relationship Specialty Start Date End Date Miki Ward MD [address] [place], [place] [id number] PCP - General Pediatrics 01/15/22 07/04/22 documented as of this encounter
--- OUTSIDE RECORDS SUMMARY | 2025-04-29 17:00 | XMS_ITS | Encounter Summary ---
Author Organization [facility] Address [address] [place] [address] Care Team Providers Care Pulp Grinder And Blender Name Role Phone Miki Ward MD Primary Care Provider +1- [phone] Encounter Details Date Type Department Care Team (Late st Contact Info) Description 02/03/2002 Outpatient Historical [facility] Pediatrics [address] [place] [address] Michelle Knox Social History Tobacco Use Types Packs/Day Years Used Date Smoking Tobacco: Never Assessed Comments Unknown Sex and Gender Information Value Date Recorded Sex Assigned at Not on file Legal Sex Female 3:25 AM RATE AND COST ANALYST Gender Identity Not on file Sexual [...] documented as of this encounter Care Teams Pulp Grinder And Blender Relationship Specialty Start Date End Date Miki Ward MD [address] [place], [place] [id number] PCP - General Pediatrics 01/15/22 07/04/22 documented as of this encounter
--- OUTSIDE RECORDS SUMMARY | 2025-04-29 17:00 | XMS_ITS | Encounter Summary ---
Author Organization [facility] Address [address] [place] [address] Care Team Providers Care Flow Machine Operator Name Role Phone Miki Ward MD Primary Care Provider +1- [phone] Encounter Details Date Type Department Care Team (Late st Contact Info) Description [address] [facility] Pediatrics [address] [place] [address] Michelle Knox Social History Tobacco Use Types Packs/Day Years Used Date Smoking Tobacco: Never Assessed Comments Unknown Sex and Gender Information Value Date Recorded Sex Assigned at Not on file Legal Sex Female 3:25 AM ASPARAGUS CUTTER Gender Identity Not on file Sexual Orientation [...] documented as of this encounter Care Teams Flow Machine Operator Relationship Specialty Start Date End Date Miki Ward MD [address] [place], [place] [id number] PCP - General Pediatrics 01/15/22 07/04/22 documented as of this encounter
--- OUTSIDE RECORDS SUMMARY | 2025-04-29 17:00 | XMS_ITS | Encounter Summary ---
Author Organization [facility] Address [address] [place] [address] Care Team Providers Care Design Verification Engineer Name Role Phone Miki Ward MD Primary Care Provider +1- [phone] Encounter Details Date Type Department Care Team (Late st Contact Info) Description [address] [facility] Pediatrics [address] [place] [address] Michelle Knox Social History Tobacco Use Types Packs/Day Years Used Date Smoking Tobacco: Never Assessed Comments Unknown Sex and Gender Information Value Date Recorded Sex Assigned at Not on file Legal Sex Female 3:25 AM EQUIPMENT SALES SPECIALIST Gender Identity Not on file Sexual [...] documented as of this encounter Care Teams Design Verification Engineer Relationship Specialty Start Date End Date Miki Ward MD [address] [place], [place] [id number] PCP - General Pediatrics 01/15/22 07/04/22 documented as of this encounter
--- OUTSIDE RECORDS SUMMARY | 2025-04-29 17:00 | XMS_ITS | Encounter Summary ---
Author Organization [employer] Address [address] [place] [address] Care Team Providers Care Child Care Centre Manager Name Role Phone Miki Ward MD Primary Care Provider +1- [phone] Encounter Details Date Type Department Care Team (Latest Contact Info) Description 03/23/2002 Outpatient Historical [facility] Singh Angel MD NO ADDRESS ON FILE UNDIAGNOSED CARDIAC MURMURS (Primary Dx) Social History Tobacco Use Types Packs/Day Years Used Date Smoking Tobacco: Never Assessed Comments Unknown Sex and Gender Information Value Date Recorded Sex Assigned at Not on file Legal Sex Female 3:25 AM WINDOWS SYSTEMS ADMINISTRATOR Gender Identity Not on file Sexual Orientation Not on file documented as of this encounter Plan of Treatment Not on file documented as of this encounter Visit Diagnoses Diagnosis Undiagnosed cardiac murmurs- Primary documented in this encounter Additional Health Concerns Infection Onset Date Last Indicated Resolved Time R/O COVID-19 01/28/2020 01/28/2020 01/30/2020 5:00 AM CDT COVID-19 01/28/2020 01/28/2020 02/27/2020 1:16 AM CDT documented as of this encounter Care Teams Child Care Centre Manager Relationship Specialty Start Date End Date Miki Ward MD [address] [place] [address] PCP - General Pediatrics 01/15/22 07/04/22 documented as of this encounter
--- OUTSIDE RECORDS SUMMARY | 2025-04-29 17:00 | XMS_ITS | Encounter Summary ---
Author Organization [facility] Address [address] [place] [address] Care Team Providers Care Buoy Tender Name Role Phone Miki Ward MD Primary Care Provider +1- [phone] Encounter Details Date Type Department Care Team (Late st Contact Info) Description 2001 Outpatient Historical [facility] Pediatrics [address] [place] [address] Michelle Knox Social History Tobacco Use Types Packs/Day Years Used Date Smoking Tobacco: Never Assessed Comments Unknown Sex and Gender Information Value Date Recorded Sex Assigned at Not on file Legal Sex Female 3:25 AM MOTOR BLOCK MECHANIC Gender Identity Not on file Sexual Orientation [...] documented as of this encounter Care Teams Buoy Tender Relationship Specialty Start Date End Date Miki Ward MD [address] [place], [place] [id number] PCP - General Pediatrics 01/15/22 07/04/22 documented as of this encounter
--- OUTSIDE RECORDS SUMMARY | 2025-04-29 17:00 | XMS_ITS | Encounter Summary ---
Author Organization [facility] Address [address] [place] [address] Care Team Providers Care Fugitive Investigator Name Role Phone Miki Ward MD Primary Care Provider +1- [phone] Encounter Details Date Type Department Care Team (Late st Contact Info) Description 09/29/2002 Outpatient Historical [facility] [address] [place] [phone] Michelle Knox Social History Tobacco Use Types Packs/Day Years Used Date Smoking Tobacco: Never Assessed Comments Unknown Sex and Gender Information Value Date Recorded Sex Assigned at Not on file Legal Sex Female 3:25 AM BUILDING CODE INSPECTOR Gender Identity Not on file Sexual [...] documented as of this encounter Care Teams Fugitive Investigator Relationship Specialty Start Date End Date Miki Ward MD [address] [place], [place] [id number] PCP - General Pediatrics 01/15/22 07/04/22 documented as of this encounter
--- OUTSIDE RECORDS SUMMARY | 2025-04-29 17:00 | XMS_ITS | Encounter Summary ---
Author Organization [facility] Address [address] [place] [address] Care Team Providers Care Slubber Tender Name Role Phone Miki Ward MD Primary Care Provider +1- [phone] Encounter Details Date Type Department Care Team (Late st Contact Info) Description 03/11/2003 Outpatient Historical [facility] [address] [place] [address] Michelle Knox Social History Tobacco Use Types Packs/Day Years Used Date Smoking Tobacco: Never Assessed Comments Unknown Sex and Gender Information Value Date Recorded Sex Assigned at Not on file Legal Sex Female 3:25 AM NUTRITION INSTRUCTOR Gender Identity Not on file Sexual Orientation [...] documented as of this encounter Care Teams Slubber Tender Relationship Specialty Start Date End Date Miki Ward MD [address] [place], [place] [id number] PCP - General Pediatrics 01/15/22 07/04/22 documented as of this encounter
--- OUTSIDE RECORDS SUMMARY | 2025-04-29 17:00 | XMS_ITS | Encounter Summary ---
Author Organization [facility] Address [address] [place] [address] Care Team Providers Care Lode Miner Name Role Phone Miki Ward MD Primary Care Provider +1- [phone] Encounter Details Date Type Department Care Team (Late st Contact Info) Description 2001 Outpatient Historical [facility] [address] [place] [address] Michelle Knox Social History Tobacco Use Types Packs/Day Years Used Date Smoking Tobacco: Never Assessed Comments Unknown Sex and Gender Information Value Date Recorded Sex Assigned at Not on file Legal Sex Female 3:25 AM CUSTOMER SUPPORT ASSOCIATE Gender Identity Not on file Sexual Orientation [...] documented as of this encounter Care Teams Lode Miner Relationship Specialty Start Date End Date Miki Ward MD [address] [place], [place] [id number] PCP - General Pediatrics 01/15/22 07/04/22 documented as of this encounter
--- OUTSIDE RECORDS SUMMARY | 2025-04-29 17:00 | XMS_ITS | Encounter Summary ---
Author Organization [facility] Address [address] [place] [address] Care Team Providers Care Environment Friendly Landscape Designer Name Role Phone Miki Ward MD Primary Care Provider +1- [phone] Encounter Details Date Type Department Care Team (Late st Contact Info) Description 03/16/2002 Outpatient Historical [facility] [address] [place] [address] Miki Ward MD [address] [place] [address] Social History Tobacco Use Types Packs/Day Years Used Date Smoking Tobacco: Never Assessed Comments Unknown Sex and Gender Information Value Date Recorded Sex Assigned at Not on file Legal Sex Female 3:25 AM PRINCIPLE SOFTWARE ENGINEER Gender Identity Not on file Sexual Orientation [...] documented as of this encounter Care Teams Environment Friendly Landscape Designer Relationship Specialty Start Date End Date Miki Wrad MD [address] [place] [address] PCP - General Pediatrics 01/15/22 07/04/22 documented as of this encounter
--- OUTSIDE RECORDS SUMMARY | 2025-04-29 17:00 | XMS_ITS | Encounter Summary ---
Author Organization [facility] Address [address] [place] [address] Care Team Providers Care Legislative Analyst Name Role Phone Miki Ward MD Primary Care Provider +1- [phone] Encounter Details Date Type Department Care Team (Late st Contact Info) Description 03/26/[address] [facility] [address] [place] [phone] Michelle Knox Social History Tobacco Use Types Packs/Day Years Used Date Smoking Tobacco: Never Assessed Comments Unknown Sex and Gender Information Value Date Recorded Sex Assigned at Not on file Legal Sex Female 3:25 AM FRIED CAKE MAKER Gender Identity Not on file Sexual [...] documented as of this encounter Care Teams Legislative Analyst Relationship Specialty Start Date End Date Miki Ward MD [address] [place], [place] [id number] PCP - General Pediatrics 01/15/22 07/04/22 documented as of this encounter
--- OUTSIDE RECORDS SUMMARY | 2025-04-29 17:00 | XMS_ITS | Encounter Summary ---
Author Organization [facility] Address [address] [place] [address] Care Team Providers Care Owner Operator Name Role Phone Miki Ward MD Primary Care Provider +1- [phone] Encounter Details Date Type Department Care Team (Late st Contact Info) Description 2001 Outpatient Historical [facility] 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
--- OUTSIDE RECORDS SUMMARY | 2025-04-29 17:00 | XMS_ITS | Encounter Summary ---
Author Organization [facility] Address [address] [place] [address] Care Team Providers Care Pipe Setter Name Role Phone Miki Ward MD Primary Care Provider +1- [phone] Encounter Details Date Type Department Care Team (Late st Contact Info) Description 10/05/2002 Outpatient Historical [facility] [place] 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
--- OUTSIDE RECORDS SUMMARY | 2025-04-29 17:00 | XMS_ITS | Encounter Summary ---
Author Organization [facility] Address [address] [place] [address] Care Team Providers Care Flight Service Specialist Name Role Phone Miki Ward MD Primary Care Provider +1- [phone] Encounter Details Date Type Department Care Team (Late st Contact Info) Description 2001 Outpatient Historical [facility] 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
--- OUTSIDE RECORDS SUMMARY | 2025-04-29 17:00 | XMS_ITS | Encounter Summary ---
Author Organization [facility] Address [address] [place] [address] Care Team Providers Care Storm Door Maker Name Role Phone Miki Ward MD Primary Care Provider +1- [phone] Encounter Details Date Type Department Care Team (Late st Contact Info) Description 03/22/2003 Outpatient Historical [facility] [address] [place] [address] Miki Ward MD [address] [place] [address] Social History Tobacco Use Types Packs/Day Years Used Date Smoking Tobacco: Never Assessed Comments Unknown Sex and Gender Information Value Date Recorded Sex Assigned at Not on file Legal Sex Female 3:25 AM DIRECTOR OF CASEWORK SERVICES Gender Identity Not on file Sexual Orientation [...] documented as of this encounter Care Teams Storm Door Maker Relationship Specialty Start Date End Date Miki Ward MD [address] [place] [address] PCP - General Pediatrics 01/15/22 07/04/22 documented as of this encounter
--- OUTSIDE RECORDS SUMMARY | 2025-04-29 17:00 | XMS_ITS | Encounter Summary ---
Author Organization [facility] Address [address] [place] [address] Care Team Providers Care Herbarium Worker Name Role Phone Miki Ward MD Primary Care Provider +1- [phone] Encounter Details Date Type Department Care Team (Late st Contact Info) Description 2001 Outpatient Historical [facility] [address] [place] [phone] Michelle Knox Social History Tobacco Use Types Packs/Day Years Used Date Smoking Tobacco: Never Assessed Comments Unknown Sex and Gender Information Value Date Recorded Sex Assigned at Not on file Legal Sex Female 3:25 AM MOUNTAIN SERVICES MANAGER Gender Identity Not on file Sexual [...] documented as of this encounter Care Teams Herbarium Worker Relationship Specialty Start Date End Date Miki Ward MD [address] [place], [place] [id number] PCP - General Pediatrics 01/15/22 07/04/22 documented as of this encounter
--- OUTSIDE RECORDS SUMMARY | 2025-04-29 17:00 | XMS_ITS | Encounter Summary ---
Author Organization [facility] Address [address] [place] [address] Care Team Providers Care Larriman Helper Name Role Phone Miki Ward MD Primary Care Provider +1- [phone] Encounter Details Date Type Department Care Team (Late st Contact Info) Description [address] [facility] 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
--- OUTSIDE RECORDS SUMMARY | 2025-04-29 17:00 | XMS_ITS | Encounter Summary ---
Author Organization [facility] Address [address] [place] [address] Care Team Providers Care It Support Analyst Name Role Phone Miki Ward MD Primary Care Provider +1- [phone] Encounter Details Date Type Department Care Team (Late st Contact Info) Description 2001 Outpatient Historical [facility] [address] [place] [address] Michelle Knox Social History Tobacco Use Types Packs/Day Years Used Date Smoking Tobacco: Never Assessed Comments Unknown Sex and Gender Information Value Date Recorded Sex Assigned at Not on file Legal Sex Female 3:25 AM ORNAMENT MAKER HAND Gender Identity Not on file Sexual Orientation [...] documented as of this encounter Care Teams It Support Analyst Relationship Specialty Start Date End Date Miki Ward MD [address] [place], [place] [id number] PCP - General Pediatrics 01/15/22 07/04/22 documented as of this encounter
== END 2025-04-29 09:31 | disposition home or self-care (01) ==
PROVIDERS: Emergency Provider Nurse Practitioner
DX: R10.9 Unspecified abdominal pain (principal)
CPT/HCPCS: 74018; 81003; 81025; 99202; 99203; G0463